=== PATIENT | male | born 1930 | race Caucasian/White ===

== ENCOUNTER 2018-09-16 08:00 | Inpatient (IN) | payer MEDICARE ==
[2018-09-16 08:35] VITALS: BMI 27.9
[2018-09-16 08:41] LABS: Hemoglobin 13.8 g/dL (14.0-18.0); Mean Corpuscular Hemoglobin 32.5 pg (27.0-31.0); Mean Corpuscular Volume 92.9 fL (78.0-98.0); Mean Platelet Volume 7.4 fL (7.4-10.4); Platelet Count 153 thou/uL (130-400); RBC Distribution Width 11.5 % (11.5-14.5); Red Blood Cell (RBC) Count 4.26 mill/uL (4.70-6.10); White Blood Cell (WBC) Count 5.3 thou/uL (4.8-10.8)
[2018-09-16 09:00] LABS: PTT 32.6 SEC (22.9-36.1); Prothrombin Time 13.1 SEC (12.0-14.7)
[2018-09-16 09:17] LABS: Anion Gap 12 mmol/L (10-20); BUN (Urea Nitrogen) 22 mg/dL (8.4-25.7); Calc. Creatinine Clearance 0 mL/min (70-130); Calcium 9.4 mg/dL (7.8-10.44); Carbon Dioxide 25 mmol/L (23-31); Chloride 107 mmol/L (98-107); Estimated GFR-MDRD 49; Glucose 108 mg/dL (83-110); Potassium 4.2 mmol/L (3.5-5.1); Sodium 140 mmol/L (136-145)
[2018-09-21] MEDS ORDERED: Fentanyl 100 MCG/2 ML VIAL ONE ×2 (08:00→10:13)
[2018-09-21] MEDS ORDERED: Midazolam HCl 2 mg/2 ml Vial ONE (08:00)
[2018-09-21] MEDS ORDERED: Sodium Chloride 0.9% 100 ML ONE (08:14)
[2018-09-21] MEDS ORDERED: Tranexamic Acid 1,000 MG/10 ML VIAL ONE ×2 (08:14→11:10)
[2018-09-21] MEDS ORDERED: ceFAZolin Sodium (SDC) 2 GM/100 ML BAG ONE (08:14)
[2018-09-21] MEDS ORDERED: Neomycin-Polymyxin 1 ML AMP ONE (08:36)
[2018-09-21] MEDS ORDERED: Bupivacaine/Epinephrine 0.25% 30 ML VIAL ONE ×2 (08:36→10:13)
[2018-09-21] MEDS ORDERED: PROPOFOL 20 ML ONE (09:06)
[2018-09-21] MEDS ORDERED: Ondansetron PF 4 MG/2 ML Vial IVP PRN ×2 (09:22→09:37)
[2018-09-21] MEDS ORDERED: traMADol HCl 50 MG TAB PO PRN ×3 (09:22→09:37)
[2018-09-21] MEDS ORDERED: Acetaminophen 325 MG TAB PO PRN (09:22)
[2018-09-21] MEDS ORDERED: Fentanyl 100 MCG/2 ML VIAL SLOW IVP PRN ×2 (09:22→09:38)
[2018-09-21] MEDS ORDERED: diphenhydrAMINE 25 MG CAP PO PRN (09:22)
[2018-09-21] MEDS ORDERED: Nitroglycerin 0.4 MG TAB (25 Tab Bottle) SL PRN (09:26)
[2018-09-21] MEDS ORDERED: SUMAtriptan Succinate 50 MG TAB PO PRN (09:26)
[2018-09-21] MEDS ORDERED: cloNIDine 0.1 MG TAB PO PRN (09:26)
[2018-09-21] MEDS ORDERED: Tranexamic Acid 1,000 MG in Sodium Chloride 0.9% 100 ML IVPB SCH ×2 (09:30→12:15)
[2018-09-21] MEDS ORDERED: Zolpidem Tartrate 5 MG TAB PO PRN (09:37)
[2018-09-21] MEDS ORDERED: Promethazine HCl 25 MG/ML VIAL IM PRN ×2 (09:37→11:38)
[2018-09-21] MEDS ORDERED: Ropivacaine 0.2% 550 ML 550 ML NERVE BLCK SCH (09:37)
[2018-09-21] MEDS ORDERED: Ropivacaine HCl/PF 250 ML in Premix Bag 1 BAG NERVE BLCK SCH (10:03)
[2018-09-21] MEDS ORDERED: Ondansetron HCl/PF 4 MG/2 ML Vial IVP PRN (11:38)
[2018-09-21] MEDS ORDERED: Promethazine HCl 25 MG/ML VIAL SLOW IVP PRN (11:38)
[2018-09-21] MEDS ORDERED: Ropivacaine 0.2% HCl/PF (40 MG/20 ML VIAL) ONE (11:45)
[2018-09-21] MEDS ORDERED: Ropivacaine 0.5% HCl/PF (150 MG/30 ML VIAL) ONE (11:45)
--- NOTE | 2018-09-21 12:24 | RAD ---
EXAM: 2 views of the left knee HISTORY: Knee arthroplasty COMPARISON: None FINDINGS: No knee effusion is seen. The patient is status post knee arthroplasty without perihardware lucency or fracture. Air in the soft tissues and overlying skin tim are from recent surgery. IMPRESSION: Status post knee arthroplasty without evidence of complication.
[2018-09-21] MEDS ORDERED: PROPOFOL 200 MG/20 ML VIAL ONE (12:36)
[2018-09-21] MEDS: CEFAZOLIN 2 GM, IV Admixture Fee-Chemo 1 UNITS in Sodium Chloride 0.9% 100 ML IVPB SCH ×2 (15:18→17:19)
[2018-09-21] MEDS ORDERED: hydrALAZINE 20 MG/ML VIAL SLOW IVP PRN (16:28)
[2018-09-21] MEDS: HYDROcodone/Acetaminophen 10/325 mg Tablet PO PRN (16:43)
[2018-09-21] MEDS: Sodium Chloride 0.9% 1,000 ML IV SCH ×2 (16:44→21:39)
--- NOTE | 2018-09-21 17:03 | CON ---
DATE OF CONSULTATION: PRIMARY CARE PROVIDER: Dr. Fady Garrido. CHIEF COMPLAINT: Management of medical comorbidities. HISTORY OF PRESENT ILLNESS: Mr. Singer is a pleasant 88-year-old gentleman, who was seen at [facility] on September 21, 2018. He underwent left knee arthroplasty. Hospitalist Service was consulted for management of medical comorbidities. Mr. Singer denies any chest pain or shortness of breath. He reports numbness in the left lower extremity. He denies any fevers or chills. He denies any nausea, vomiting, diarrhea, or abdominal pain. REVIEW OF SYSTEMS: All systems were reviewed and found to be negative except for the pertinent positives mentioned above. PAST MEDICAL HISTORY: Hypertension, dyslipidemia, coronary artery disease, and atrial fibrillation/flutter. PAST SURGICAL HISTORY: Ablation for atrial fibrillation/flutter, coronary artery bypass graft, transurethral resection of prostate, cholecystectomy, hernia surgery, and cataract surgery. FAMILY HISTORY: Stomach cancer in mother, coronary artery disease and diabetes in father. SOCIAL HISTORY: No history of tobacco use, alcohol use, or recreational drug use. ALLERGIES: MORPHINE. HOME MEDICATIONS: 1. Imitrex p.r.n. 2. Clonidine p.r.n. 3. Amlodipine 2.5 mg daily. 4. Atorvastatin 40 mg at bedtime. 5. Plavix 75 mg daily. 6. Multivitamins one tablet daily. 7. Nitrostat p.r.n. 8. Benicar 40 mg daily. 9. Turmeric one tablet daily. 10. Ubiquinol 100 mg daily. 11. Ambien 5 mg at bedtime as needed. PHYSICAL EXAMINATION: GENERAL: On examination, Mr. Singer is awake and alert, not in acute distress. VITAL SIGNS: Stable. EYES: No scleral icterus, no conjunctival pallor. ENT: Moist mucosal membranes. No oropharyngeal erythema or exudates. NECK: Supple, nontender, trachea is midline. RESPIRATORY: Accessory muscles of breathing are not active. Chest wall movements are symmetric bilaterally. Lungs are clear to auscultation without wheeze, rhonchi, or crepitations. CARDIOVASCULAR: S1 and S2 are heard, regular. Peripheral pulses palpable. NEUROLOGIC: Cranial nerves 2 through 12 are intact. ABDOMEN: Soft, nontender, bowel sounds heard. MUSCULOSKELETAL: Left knee in dressing. SKIN: No rashes or subcutaneous nodules. LYMPHATIC: No cervical lymphadenopathy. PSYCHIATRIC: Normal mood, normal affect, the patient is oriented to person, place, and time. LABORATORY DATA: Mr. Singer's labs and investigations were reviewed. On September 16, he had normal white count, normocytic anemia with hemoglobin of 13.8, normal platelet count, INR 1.0, creatinine elevated at 1.38 and an otherwise unremarkable Chem-7. ASSESSMENT AND PLAN: Mr. Singer is a pleasant 88-year-old gentleman, who was seen at [facility] on September 21, 2018. His problem list includes: 1. Hypertension: Monitor vital signs and titrate antihypertensives as needed. Add p.r.n. IV hydralazine for blood pressure spikes. Hold ARB, since it is unclear whether his renal insufficiency is new or old. 2. Stage 3 chronic kidney disease: It is unclear whether this is an acute worsening of chronic kidney disease or progressive worsening, but his GFR was higher in December 2017. We will hold ARB and recheck renal function. 3. Dyslipidemia: Continue atorvastatin. 4. Coronary artery disease: Stable. Many thanks for allowing me to participate in your patient's care. Please feel free to contact me with any questions or concerns. LEVEL OF RISK: Low. LEVEL OF COMPLEXITY: Low. Job ID: [id number] MTDD
[2018-09-21] MEDS: Senokot S 8.6-50 MG TAB PO SCH (21:36)
[2018-09-21] MEDS: Aspirin 81 mg Enteric Coated Tablet PO SCH (21:37)
[2018-09-21] MEDS: Ferrous Gluconate 324 MG TAB PO SCH (21:37)
[2018-09-21] MEDS: Atorvastatin Calcium 40 MG TAB PO SCH (21:37)
[2018-09-22] MEDS: Sodium Chloride 0.9% 1,000 ML IV SCH ×2 (03:05→15:14)
[2018-09-22] MEDS: HYDROcodone/Acetaminophen 10/325 mg Tablet PO PRN ×3 (04:30→19:56)
[2018-09-22 05:45] LABS: Hemoglobin 11.8 g/dL (14.0-18.0); Mean Corpuscular HGB CONC 34.9 g/dL (32.0-36.0); Mean Corpuscular Hemoglobin 33.2 pg (27.0-31.0); Mean Corpuscular Volume 95.1 fL (78.0-98.0); Mean Platelet Volume 8.1 fL (7.4-10.4); Platelet Count 137 thou/uL (130-400); RBC Distribution Width 11.6 % (11.5-14.5); Red Blood Cell (RBC) Count 3.55 mill/uL (4.70-6.10); White Blood Cell (WBC) Count 6.6 thou/uL (4.8-10.8)
[2018-09-22 06:08] LABS: Anion Gap 7 mmol/L (10-20); BUN (Urea Nitrogen) 15 mg/dL (8.4-25.7); Calc. Creatinine Clearance 58 mL/min (70-130); Calcium 8.5 mg/dL (7.8-10.44); Carbon Dioxide 25 mmol/L (23-31); Chloride 108 mmol/L (98-107); Estimated GFR-MDRD 61; Glucose 114 mg/dL (83-110); Potassium 4.2 mmol/L (3.5-5.1); Sodium 136 mmol/L (136-145)
[2018-09-22] MEDS ORDERED: Losartan 25 MG TAB PO SCH (09:00)
[2018-09-22] MEDS ORDERED: MULTIVITAMIN PO SCH (09:00)
[2018-09-22] MEDS: Ubidecarenone 50 MG CAP PO SCH (09:20)
[2018-09-22] MEDS: Multivitamin W/ Minerals 1 TAB PO SCH (09:20)
[2018-09-22] MEDS: Ferrous Gluconate 324 MG TAB PO SCH ×2 (09:20→19:55)
[2018-09-22] MEDS: Clopidogrel Bisulfate 75 MG TAB PO SCH (09:20)
[2018-09-22] MEDS: Amlodipine 5 MG TAB PO SCH (09:20)
[2018-09-22] MEDS: Aspirin 81 mg Enteric Coated Tablet PO SCH ×2 (09:20→19:55)
[2018-09-22] MEDS: Losartan 25 MG TAB PO SCH (09:20)
[2018-09-22] MEDS: Senokot S 8.6-50 MG TAB PO SCH ×2 (09:20→19:55)
--- NOTE | 2018-09-22 15:24 | PDOC.HOSPP ---
- Subjective Encounter Date: 09/22/18 Encounter Time: 08:40 Subjective: Pt seen for followup re: hypertension. Feels well, no complaints. - Objective Vital Signs & Weight: Vital Signs (12 hours) Temp Pulse Resp BP Pulse Ox 09/22/18 07:23 98.6 F 64 18 104/65 92 L 09/22/18 03:38 98.9 F 78 16 122/53 L 93 L Weight Weight 194 lb 15.982 oz I&O: 09/21/18 09/22/18 09/23/18 06:59 06:59 06:59 Intake Total 2050 Output Total 800 Balance 1250 Result Diagrams: 09/22/18 05:20 09/22/18 05:20 Additional Labs: Labs and MARs reviewed by ROS - Review of Systems Cardiovascular: denies: chest pain, palpitations, orthopnea, paroxysmal noc. dyspnea, edema, light headedness Gastrointestinal: denies: nausea, vomitting, abdominal pain, diarrhea, constipation, melena, hematochezia - Medication Medications: Active Medications Generic Name Dose Route Start Last Admin Trade Name Freq PRN Reason Stop Dose Admin Hydrocodone Bitart/Acetaminophen 2 tab 09/21/18 09:37 09/22/18 09:57 Dexter 10/325 PO 2 tab Q4H PRN Administration PAIN (4-6) Amlodipine Besylate 2.5 mg 09/22/18 09:00 09/22/18 09:20 Norvasc PO Not Given DAILY CARLY Aspirin 81 mg 09/21/18 21:00 09/22/18 09:20 Ecotrin PO 81 mg BID CARLY Administration Atorvastatin Calcium 40 mg 09/21/18 21:00 09/21/18 21:37 Lipitor PO 40 mg HS CARLY Administration Clopidogrel Bisulfate 75 mg 09/22/18 09:00 09/22/18 09:20 Plavix PO 75 mg DAILY CARLY Administration Coenzyme Q10 100 mg 09/22/18 09:00 09/22/18 09:20 Coenzyme Q10 PO 100 mg DAILY CARLY Administration Ferrous Gluconate 324 mg 09/21/18 21:00 09/22/18 09:20 Fergon PO 324 mg BID CARLY Administration Sodium Chloride 1,000 mls @ 100 mls/hr 09/21/18 09:30 09/22/18 15:14 Normal Saline 0.9% IV Not Given .Q10H CARLY Ropivacaine 250 ml/ Device 250 mls @ 10 mls/hr 09/21/18 10:03 09/22/18 15:10 NERVE BLCK 250 mls INF CARLY Administration As Directed Iron/Minerals/Multivitamins 1 tab 09/22/18 09:00 09/22/18 09:20 Theragran M PO 1 tab DAILY CARLY Administration Losartan Potassium 100 mg 09/22/18 09:00 09/22/18 09:20 Cozaar PO Not Given DAILY CARLY Senna/Docusate Sodium 2 tab 09/21/18 21:00 09/22/18 09:20 Senokot S PO 2 tab BID CARLY Administration Tramadol HCl 100 mg 09/21/18 09:22 09/21/18 23:12 Ultram PO 100 mg Q6H PRN Administration Moderate Pain (4-6) - Exam NAD Eye: anicteric sclera ENT: normocephalic atraumatic Neck: supple Heart: RRR Respiratory: CTAB Gastrointestinal: soft Extremeties - other findings: s/p L knee surgery Skin: normal turgor Neurological: no weakness Psychiatric: normal affect, normal behavior Hosp A/P (1) HTN (hypertension) Code(s): I10 - ESSENTIAL (PRIMARY) HYPERTENSION Status: Chronic (2) Dyslipidemia Code(s): E78.5 - HYPERLIPIDEMIA, UNSPECIFIED Status: Chronic (3) CAD (coronary artery disease) Code(s): I25.10 - ATHSCL HEART DISEASE OF [place] CORONARY ARTERY W/O ANG PCTRS Status: Chronic (4) Acute kidney injury superimposed on CKD Code(s): N17.9 - ACUTE KIDNEY FAILURE, UNSPECIFIED; N18.9 - CHRONIC KIDNEY DISEASE, UNSPECIFIED Status: Resolved Plan: Baseline Stage 2 CKD, resolved - Plan plan discussed w/ family, PT/OT, out of bed/ambulate Creatinine improved to 1.14. CAD stable.
[2018-09-22] MEDS: Tamsulosin HCl 0.4 MG CAP PO SCH (19:55)
[2018-09-22] MEDS: Atorvastatin Calcium 40 MG TAB PO SCH (19:55)
[2018-09-23] MEDS: Sodium Chloride 0.9% 1,000 ML IV SCH ×3 (00:55→22:08)
[2018-09-23 04:42] LABS: Hemoglobin 12.6 g/dL (14.0-18.0); Mean Corpuscular HGB CONC 35.1 g/dL (32.0-36.0); Mean Corpuscular Hemoglobin 33.7 pg (27.0-31.0); Mean Corpuscular Volume 95.9 fL (78.0-98.0); Mean Platelet Volume 7.7 fL (7.4-10.4); Platelet Count 132 thou/uL (130-400); RBC Distribution Width 11.6 % (11.5-14.5); Red Blood Cell (RBC) Count 3.74 mill/uL (4.70-6.10); White Blood Cell (WBC) Count 9.4 thou/uL (4.8-10.8)
[2018-09-23] MEDS: Ubidecarenone 50 MG CAP PO SCH (08:45)
[2018-09-23] MEDS: Aspirin 81 mg Enteric Coated Tablet PO SCH (08:45)
[2018-09-23] MEDS: Clopidogrel Bisulfate 75 MG TAB PO SCH (08:46)
[2018-09-23] MEDS: HYDROcodone/Acetaminophen 10/325 mg Tablet PO PRN (08:46)
[2018-09-23] MEDS: Tamsulosin HCl 0.4 MG CAP PO SCH ×2 (08:46→20:28)
[2018-09-23] MEDS: Ferrous Gluconate 324 MG TAB PO SCH ×2 (08:46→20:28)
[2018-09-23] MEDS: Senokot S 8.6-50 MG TAB PO SCH ×2 (08:46→20:28)
[2018-09-23] MEDS: Multivitamin W/ Minerals 1 TAB PO SCH (08:47)
[2018-09-23] MEDS: Losartan 25 MG TAB PO SCH (08:53)
[2018-09-23] MEDS: Amlodipine 5 MG TAB PO SCH (08:53)
[2018-09-23] MEDS ORDERED: HYDROcodone/Acetaminophen 5/325 mg Tablet PO PRN (19:05)
--- NOTE | 2018-09-23 19:26 | PDOC.HOSPP ---
- Subjective Encounter Date: 09/23/18 Encounter Time: 19:24 Subjective: Pt seen for followup re: hypertension. Feels well, no complaints. - Objective Vital Signs & Weight: Vital Signs (12 hours) Temp Pulse Resp BP BP Pulse Ox 09/23/18 15:47 97.4 F L 100 18 122/76 93 L 09/23/18 08:53 73 103/62 09/23/18 07:34 98.6 F 74 20 114/67 93 L Weight Weight 194 lb 15.982 oz I&O: 09/22/18 09/23/18 09/24/18 06:59 06:59 06:59 Intake Total 2050 1500 Output Total 800 775 Balance 1250 725 Result Diagrams: 09/23/18 04:25 09/22/18 05:20 Additional Labs: MARs and Labs reviewed by me SUMMERS - Review of Systems Gastrointestinal: denies: nausea, vomitting, abdominal pain, diarrhea, constipation, melena, hematochezia Genitourinary: denies: dysuria, frequency, incontinence, hematuria, retention - Medication Medications: Active Medications Generic Name Dose Route Start Last Admin Trade Name Freq PRN Reason Stop Dose Admin Amlodipine Besylate 2.5 mg 09/22/18 09:00 09/23/18 08:53 Norvasc PO Not Given DAILY CARLY Atorvastatin Calcium 40 mg 09/21/18 21:00 09/22/18 19:55 Lipitor PO 40 mg HS CARLY Administration Clopidogrel Bisulfate 75 mg 09/22/18 09:00 09/23/18 08:46 Plavix PO 75 mg DAILY CARLY Administration Coenzyme Q10 100 mg 09/22/18 09:00 09/23/18 08:45 Coenzyme Q10 PO 100 mg DAILY CARLY Administration Ferrous Gluconate 324 mg 09/21/18 21:00 09/23/18 08:46 Fergon PO 324 mg BID CARLY Administration Sodium Chloride 1,000 mls @ 100 mls/hr 09/21/18 09:30 09/23/18 13:21 Normal Saline 0.9% IV Not Given .Q10H CARLY Iron/Minerals/Multivitamins 1 tab 09/22/18 09:00 09/23/18 08:47 Theragran M PO 1 tab DAILY CARLY Administration Losartan Potassium 100 mg 09/22/18 09:00 09/23/18 08:53 Cozaar PO Not Given DAILY CARLY Senna/Docusate Sodium 2 tab 09/21/18 21:00 09/23/18 08:46 Senokot S PO 2 tab BID CARLY Administration Tamsulosin HCl 0.4 mg 09/22/18 21:00 09/23/18 08:46 Flomax PO 0.4 mg BID CARLY Administration Tramadol HCl 50 mg 09/21/18 09:37 09/23/18 15:34 Ultram PO 50 mg Q6H PRN Administration Mild Pain (1-3) - Exam NAD Eye: anicteric sclera ENT: no oropharyngeal lesions, moist mucosa Neck: supple Heart: RRR Respiratory: CTAB Gastrointestinal: soft Extremities: no edema Skin - other findings: s/p L knee surgery Musculoskeletal: normal strength Psychiatric: normal affect, normal behavior Hosp A/P (1) HTN (hypertension) Code(s): I10 - ESSENTIAL (PRIMARY) HYPERTENSION Status: Chronic (2) Dyslipidemia Code(s): E78.5 - HYPERLIPIDEMIA, UNSPECIFIED Status: Chronic (3) CAD (coronary artery disease) Code(s): I25.10 - ATHSCL HEART DISEASE OF [place] CORONARY ARTERY W/O ANG PCTRS Status: Chronic (4) Acute kidney injury superimposed on CKD Code(s): N17.9 - ACUTE KIDNEY FAILURE, UNSPECIFIED; N18.9 - CHRONIC KIDNEY DISEASE, UNSPECIFIED Status: Resolved - Plan PT/OT, out of bed/ambulate Pt is awaiting decision re: home vs SNU. CAD stable.
[2018-09-23] MEDS: Atorvastatin Calcium 40 MG TAB PO SCH (20:28)
[2018-09-23] MEDS: HYDROcodone/Acetaminophen 5/325 mg Tablet PO PRN (20:31)
[2018-09-24] MEDS: HYDROcodone/Acetaminophen 5/325 mg Tablet PO PRN ×2 (05:40→09:50)
[2018-09-24 06:29] LABS: Mean Corpuscular HGB CONC 34.6 g/dL (32.0-36.0); Mean Corpuscular Hemoglobin 32.7 pg (27.0-31.0); Mean Corpuscular Volume 94.7 fL (78.0-98.0); Mean Platelet Volume 7.8 fL (7.4-10.4); Platelet Count 111 thou/uL (130-400); RBC Distribution Width 11.4 % (11.5-14.5); Red Blood Cell (RBC) Count 3.35 mill/uL (4.70-6.10); White Blood Cell (WBC) Count 6.4 thou/uL (4.8-10.8)
[2018-09-24] MEDS ORDERED: Zolpidem Tartrate 5 MG TAB PO PRN (07:53)
[2018-09-24] MEDS ORDERED: ZINC PO SCH ×2 (09:00)
[2018-09-24] MEDS ORDERED: COLLAGEN PO SCH (09:00)
[2018-09-24] MEDS ORDERED: MAGNESIUM PO SCH ×2 (09:00)
[2018-09-24] MEDS ORDERED: Clopidogrel Bisulfate 75 MG TAB PO SCH (09:00)
[2018-09-24] MEDS ORDERED: TURMERIC CURCUMIN 500 MG PO SCH (09:00)
[2018-09-24] MEDS: Ubidecarenone 50 MG CAP PO SCH (09:00)
[2018-09-24] MEDS: Senokot S 8.6-50 MG TAB PO SCH (09:01)
[2018-09-24] MEDS: Losartan 25 MG TAB PO SCH (09:01)
[2018-09-24] MEDS: Clopidogrel Bisulfate 75 MG TAB PO SCH (09:02)
[2018-09-24] MEDS: Amlodipine 5 MG TAB PO SCH (09:02)
[2018-09-24] MEDS: Multivitamin W/ Minerals 1 TAB PO SCH (09:02)
[2018-09-24] MEDS: Tamsulosin HCl 0.4 MG CAP PO SCH (09:02)
[2018-09-24] MEDS: Ferrous Gluconate 324 MG TAB PO SCH (09:02)
[2018-09-24 11:26] VITALS: BP 121/69; TEMP 98.4
--- NOTE | 2018-09-27 08:05 | OP ---
DATE OF PROCEDURE: 09/21/2018 PREOPERATIVE DIAGNOSIS: Osteoarthritis, left knee. POSTOPERATIVE DIAGNOSIS: Osteoarthritis, left knee. PROCEDURE PERFORMED: Left total knee arthroplasty. ANESTHESIA: General. COMPLICATION: None. CONDITION: Good. ESTIMATED BLOOD LOSS: Minimal. DRAINS: None. TOURNIQUET: Per Anesthesia. TECHNIQUE: Simple stain. DESCRIPTION OF PROCEDURE: The patient was taken to the operating room, placed in supine position. After adequate general anesthesia achieved, the patient's left knee was examined. The patient lacked approximately 5-degree full extension and 130 degrees of flexion. There was varus deformity passively, correctable. Ligament exam was stable. Moderate effusion. He was then positioned, prepped and draped in sterile fashion, and tourniquet placed in the left upper thigh. Leg was elevated, exsanguinated, and tourniquet inflated prior to incision. Standard midline vertical incision was made. It was taken down to subcutaneous tissues exposing extensor mechanism. Medial and parapatellar arthrotomy was performed. Patella subluxed laterally. The patient had advanced medial and patellofemoral arthrosis. Using intramedullary guide, distal 5-degree valgus resection on the femur was performed using AP and epicondylar axis, proper rotation in position. The size 7 cutting block was placed. Anterior, posterior, and chamfer cuts were completed for a size 7 Evolution femur. Tibia was subluxed anteriorly. Using external guide, appropriate resection was performed measuring from the deficient medial compartment. Menisci and cruciate ligaments were debrided, and flexion-extension gaps were then checked with the 10 mm spacer block. Good balancing was noted at 0 and 90 degrees. The patella was then measured, an approximately 8 to 10 mm resection was performed and a 35 mm patella was medialized. The trial components were then placed, 7 femur, 7 tibia, 35 patella, and 10 mm bearing surfaces put through range of motion. The patient had full flexion, extension, good balancing. The tibial base plate was then marked, prepared with the magalis. All surfaces were irrigated copiously, dried. Femur, tibia, and patella cemented. Excess cement removed. Again, trialed with a 10 mm bearing surface. This was chosen and snap-fit. After copious irrigation, the arthrotomy was closed with #2 [place], #1 Vicryl, the subcu with 0 and 2-0 Vicryl, and skin with tim. Sterile bulky dressing was applied, and the patient was taken to Recovery in stable condition. PROGNOSIS: Good. PLAN: Begin rehab protocol. Job ID: [id number]
== END 2018-09-24 14:55 | disposition home or self-care (01) | DRG 470 ==
LOC: SJJU 09-21 07:17 → SURG A 09-21 12:46
PROVIDERS: ADMIT Orthopaedic Surgery; ATTEND Orthopaedic Surgery
PROC: 0SRD0J9 Replacement of Left Knee Joint with Synthetic Substitute, Cemented, Open Approach (ICD-10-PCS; principal; 2018-09-21)
DX: M17.12 Unilateral primary osteoarthritis, left knee (principal); N17.9 Acute kidney failure, unspecified; E78.5 Hyperlipidemia, unspecified; I25.10 Atherosclerotic heart disease of native coronary artery without angina pectoris; I12.9 Hypertensive chronic kidney disease with stage 1 through stage 4 chronic kidney disease, or unspecified chronic kidney disease; I48.91 Unspecified atrial fibrillation; N18.3 Chronic kidney disease, stage 3 (moderate); Z79.01 Long term (current) use of anticoagulants; Z90.49 Acquired absence of other specified parts of digestive tract; Z95.1 Presence of aortocoronary bypass graft; Z90.79 Acquired absence of other genital organ(s); Z98.49 Cataract extraction status, unspecified eye
CPT/HCPCS: 36415; 80048; 85027; 85610; 85730; 86850; 86900; 86901; 87081; A4306; C1713; C1776; J0690; J2250; J2704; J2795; J3010; J3490

== ENCOUNTER 2018-10-27 15:40 | Emergency (ER) | payer MEDICARE | END 2018-10-27 16:07 | disposition home or self-care (01) | LOC: SCSER 15:40 | DX: S29.012A Strain of muscle and tendon of back wall of thorax, initial encounter (principal); I25.10 Atherosclerotic heart disease of native coronary artery without angina pectoris; E78.5 Hyperlipidemia, unspecified; I10 Essential (primary) hypertension; E78.00 Pure hypercholesterolemia, unspecified; I49.9 Cardiac arrhythmia, unspecified; I48.91 Unspecified atrial fibrillation; K21.9 Gastro-esophageal reflux disease without esophagitis; N40.0 Benign prostatic hyperplasia without lower urinary tract symptoms; Z95.1 Presence of aortocoronary bypass graft; Z79.899 Other long term (current) drug therapy; Z79.82 Long term (current) use of aspirin; X58.XXXA Exposure to other specified factors, initial encounter | CPT/HCPCS: 99283 ==

== ENCOUNTER 2022-02-23 20:31 | Observation (INO) | payer MEDICARE ==
[2022-02-23] MEDS ORDERED: Nitroglycerin 0.4 MG TAB 1 EACH ONE (21:06)
[2022-02-23 21:12] LABS: #Lymphocytes 1.5 thou/uL (1.20-3.40); #Monocytes 0.4 thou/uL (0.11-0.59); #Neutrophils 3.4 thou/uL (1.40-6.50); %Basophils 0.5 % (0.0-1.0); %Eosinophils 0.7 % (0.0-10.0); %Lymphocytes 28.6 % (21.0-51.0); %Neutrophils 63.1 % (42.0-75.0); Mean Corpuscular HGB CONC 34.7 g/dL (32.0-36.0); Mean Corpuscular Hemoglobin 33.8 pg (27.0-31.0); Mean Corpuscular Volume 97.5 fl (78.0-98.0); Mean Platelet Volume 7.8 fL (7.4-10.4); Platelet Count 143 10x3/uL (130-400); RBC Distribution Width 12.1 % (11.5-14.5); Red Blood Cell (RBC) Count 4.43 mill/uL (4.70-6.10); White Blood Cell (WBC) Count 5.4 10x3/uL (4.8-10.8)
[2022-02-23 21:29] LABS: ALT (SGPT) 14 U/L (8-55); AST (SGOT) 23 U/L (5-34); Albumin 4.5 g/dL (3.4-4.8); Alkaline Phosphatase 48 U/L (40-110); Anion Gap 13 mmol/L (10-20); BUN (Urea Nitrogen) 17 mg/dL (8.4-25.7); Calc. Creatinine Clearance 0 mL/min (70-130); Calcium 9.2 mg/dL (7.8-10.44); Carbon Dioxide 25 mmol/L (23-31); Chloride 105 mmol/L (98-107); Estimated GFR 49; Globulin 2.5 g/dL (2.4-3.5); Glucose 106 mg/dL (83-110); Lipase 91 U/L (8-78); Potassium 4.3 mmol/L (3.5-5.1); Sodium 139 mmol/L (136-145)
[2022-02-23] MEDS ORDERED: Acetaminophen 500 MG TAB ONE (21:57)
[2022-02-23 22:39] LABS: Bilirubin Negative (Negative); Blood, Urine Negative (Negative); Clarity Clear (Clear); Glucose, Urine (Dipstick) Normal (Negative); Ketone, Urine Negative (Negative); Leukocyte Negative Leu/uL (Negative); Nitrite Negative (Negative); Protein, Urine (Dipstick) Negative (Neg-Trace); Specific Gravity, Urine 1.006 (1.002-1.036); Urobilinogen Normal mg/dL (Less than 2)
[2022-02-23 23:05] LABS: SARS-CoV-2 NAA Rapid Test Not Detected (NotDetected)
[2022-02-24] MEDS ORDERED: Ondansetron ODT 4 MG TAB PO PRN (01:16)
[2022-02-24] MEDS ORDERED: Nitroglycerin 0.4 MG TAB (25 Tab Bottle) SL PRN (01:16)
[2022-02-24] MEDS ORDERED: Ondansetron PF 4 MG/2 ML Vial IVP PRN (01:16)
[2022-02-24] MEDS ORDERED: Acetaminophen 650 MG Suppository PR PRN (01:16)
[2022-02-24] MEDS ORDERED: Aspirin Chewable 81 MG TAB PO SCH ×2 (01:30→09:00)
[2022-02-24 01:35] LABS: Troponin I 0.015 ng/mL (< 0.028)
[2022-02-24] MEDS ORDERED: Aspirin 81 mg Enteric Coated Tablet PO SCH (01:45)
[2022-02-24] MEDS ORDERED: Aspirin Chewable 81 MG TAB ONE (01:58)
[2022-02-24] MEDS ORDERED: Electrolyte Replacement Protocol 1 EACH FS SCH (02:45)
[2022-02-24 03:42] VITALS: BMI 24.9
[2022-02-24 05:00] LABS: Anion Gap 11 mmol/L (10-20); BUN (Urea Nitrogen) 15 mg/dL (8.4-25.7); Calc. Creatinine Clearance 52 mL/min (70-130); Calcium 8.7 mg/dL (7.8-10.44); Carbon Dioxide 22 mmol/L (23-31); Chloride 108 mmol/L (98-107); Estimated GFR 66; Glucose 100 mg/dL (83-110); Magnesium 2.2 mg/dL (1.6-2.6); Sodium 137 mmol/L (136-145)
[2022-02-24 05:02] LABS: Troponin I 0.011 ng/mL (< 0.028)
[2022-02-24 05:19] LABS: #Lymphocytes 1.7 thou/uL (1.20-3.40); #Monocytes 0.5 thou/uL (0.11-0.59); #Neutrophils 2.2 thou/uL (1.40-6.50); %Basophils 0.7 % (0.0-1.0); %Eosinophils 0.8 % (0.0-10.0); %Lymphocytes 38.5 % (21.0-51.0); %Monocytes 10.4 % (0.0-10.0); %Neutrophils 49.6 % (42.0-75.0); Hemoglobin 12.6 g/dL (14.0-18.0); Mean Corpuscular HGB CONC 34.9 g/dL (32.0-36.0); Mean Corpuscular Hemoglobin 33.9 pg (27.0-31.0); Mean Corpuscular Volume 97.2 fl (78.0-98.0); Mean Platelet Volume 7.6 fL (7.4-10.4); Platelet Count 128 10x3/uL (130-400); RBC Distribution Width 12.1 % (11.5-14.5); Red Blood Cell (RBC) Count 3.72 mill/uL (4.70-6.10); White Blood Cell (WBC) Count 4.4 10x3/uL (4.8-10.8)
[2022-02-24] MEDS ORDERED: Losartan 25 MG TAB PO SCH (09:19)
[2022-02-24] MEDS: Apixaban 5 MG TAB PO SCH ×2 (10:15→21:12)
[2022-02-24] MEDS ORDERED: Nitroglycerin 2% Ointment 1 INCH/1 GM Packet TOP SCH ×3 (10:21→21:00)
[2022-02-24] MEDS ORDERED: Nitroglycerin 2% Ointment 1 INCH/1 GM Packet ONE (10:57)
[2022-02-24] MEDS ORDERED: cloNIDine 0.1 MG TAB PO PRN (11:21)
[2022-02-24] MEDS ORDERED: SUMAtriptan Succinate 50 MG TAB PO PRN (12:24)
[2022-02-24] MEDS ORDERED: Apixaban 5 MG TAB PO SCH (12:30)
[2022-02-24 12:46] LABS: Free T4 (Free Thyroxine) 0.94 ng/dL (0.70-1.48)
[2022-02-24] MEDS ORDERED: NIFEdipine XL 30 MG TAB PO SCH (15:45)
[2022-02-24] MEDS ORDERED: Flecainide 50 MG TAB PO SCH (18:00)
[2022-02-24] MEDS: Acetaminophen 325 MG TAB PO PRN (21:13)
[2022-02-25] MEDS: Acetaminophen 325 MG TAB PO PRN (05:25)
[2022-02-25] MEDS ORDERED: Levothyroxine Sodium 112 MCG TAB PO SCH (06:00)
[2022-02-25 08:30] VITALS: BP 141/81; TEMP 97.8
[2022-02-25] MEDS ORDERED: Ezetimibe 10 MG TAB PO SCH (09:00)
[2022-02-25] MEDS ORDERED: Turmeric Root Extract [Turmeric Curcumin] 500 MG Capsule PO SCH (09:00)
[2022-02-25] MEDS ORDERED: NIFEdipine XL 30 MG TAB PO SCH (09:00)
[2022-02-25] MEDS ORDERED: Multivit, Therapeutic 1 TAB PO SCH (09:00)
[2022-02-25] MEDS ORDERED: Flecainide 50 MG TAB PO SCH (09:00)
[2022-02-25] MEDS ORDERED: Losartan 25 MG TAB PO SCH (09:00)
[2022-02-25] MEDS: Apixaban 5 MG TAB PO SCH (09:13)
== END 2022-02-25 10:29 | disposition home or self-care (01) ==
LOC: ERS 20:31 → 2SW 02-24 00:35 → ERHOLD 02-24 00:51 → 2SW 02-24 14:56
PROVIDERS: ADMIT Internal Medicine; ATTEND Internal Medicine
DX: I16.0 Hypertensive urgency (principal); R07.89 Other chest pain; I12.9 Hypertensive chronic kidney disease with stage 1 through stage 4 chronic kidney disease, or unspecified chronic kidney disease; N18.30 Chronic kidney disease, stage 3 unspecified; I48.0 Paroxysmal atrial fibrillation; I25.10 Atherosclerotic heart disease of native coronary artery without angina pectoris; N40.0 Benign prostatic hyperplasia without lower urinary tract symptoms; E03.9 Hypothyroidism, unspecified; E78.5 Hyperlipidemia, unspecified; K21.9 Gastro-esophageal reflux disease without esophagitis; G31.9 Degenerative disease of nervous system, unspecified; R01.1 Cardiac murmur, unspecified; Z79.01 Long term (current) use of anticoagulants; Z79.890 Hormone replacement therapy; Z79.899 Other long term (current) drug therapy; Z88.5 Allergy status to narcotic agent; Z88.8 Allergy status to other drugs, medicaments and biological substances; Z95.1 Presence of aortocoronary bypass graft; Z20.822 Contact with and (suspected) exposure to COVID-19
CPT/HCPCS: 70450; 71045; 80048; 80053; 81003; 83690; 83735; 84100; 84439; 84443; 84481; 84484 ×3; 85025 ×2; 93005; 99285; G0378 ×3; U0002; 36415